=== PATIENT | female | born 1995 | race Two or more races ===

== ENCOUNTER 2017-06-12 23:00 | Emergency (ER) | payer MEDICAID ==
[~2017-06-12] VITALS: Ht 162.6 cm; Wt 80.3 kg
--- NOTE | 2017-06-12 23:05 | Emergency Room Report ---
History of Present Illness General Chief Complaint: To Be Triaged Present Illness HPI 21-year-old female with 2 weeks of dry cough, nausea, generalized body aches. Denies fever chills, shortness of breath or chest pain/ States that she used to have asthma hasnt had to use inhaler and a while, currently not using it got flu vaccine Allergies: Coded Allergies: No Known Allergies (Unverified , 06/12/17) Patient History Past Medical History: none Past Surgical History: none Pertinent Family History: none Social History: Denies: smoking, alcohol use, drug use Now: No Immunizations: UTD Reviewed Nursing Documentation: PMH: Agreed, PSxH: Agreed Review of Systems All Other Systems: negative except mentioned in HPI Physical Exam Sp02 EP Interpretation: reviewed, normal General Appearance: normal inspection, well appearing, no apparent distress, alert, GCS 15, non-toxic Head: normocephalic, atraumatic Eyes: bilateral eye PERRL, bilateral eye EOMI ENT: normal ENT inspection, hearing grossly normal, normal pharynx, no angioedema, normal voice, TMs + canals normal, uvula midline, moist mucus membranes Neck: normal inspection, full range of motion, supple, thyroid normal, no meningismus, no bony tend Respiratory: normal inspection, lungs clear, normal breath sounds, no rhonchi, no respiratory distress, no retraction, no accessory muscle use, no wheezing, speaking full sentences Cardiovascular #1: regular rate, rhythm, no edema, no JVD, normal capillary refill Gastrointestinal: normal inspection, normal bowel sounds, non tender, soft, no mass, no peritonitis, non-distended, no guarding, no hernia, no pulsatile mass Genitourinary: no CVA tenderness Musculoskeletal: normal inspection, back normal, normal range of motion, no calf tenderness, pelvis stable, Sharita's Sign negative Neurologic: normal inspection, alert, oriented x3, responsive, jackaroo III-XII nml as tested, motor strength/tone normal, cerebellar normal, normal gait, speech normal Psychiatric: normal inspection, judgement/insight normal, mood/affect normal, no suicidal/homicidal ideation, no delusions Skin: normal inspection, normal color, no rash Lymphatic: normal inspection, no adenopathy Medical Decision Making Diagnostic Impression: Primary Impression: Cough Additional Impression: Nausea ER Course Nausea from repeated dry coughing VSS, afebrile Lungs CTAB - no wheezing or PNA on exam Otherwise well appearing Was given oral zofran and albuterol, T#3 Likely URI, bronchitis DC ER course: Patient has remained stable during ED stay. Disposition: Patient is to be discharged to home. Prescriptions given are ventolin, cough syrup Patient is instructed to follow up with their primary care doctor within 5 days. Strict return precautions discussed with patient such as fever, chills, worsening/severe pain, nausea, vomiting, which may indicate severe illness. Patient verbalizes understanding and agrees with plan. Please note that this Emergency Department Report was dictated using [employer] technology software, occasionally this can lead to erroneous entry secondary to interpretation by the dictation equipment Status: improved Disposition: HOME, SELF-CARE REN AGUILLON M.D. Jun 12, 2017 23:05
[2017-06-12] MEDS ORDERED: Tylenol #3 tab (300mg/30mg) ORAL ONE (23:30)
[2017-06-12] MEDS ORDERED: Albuterol ud Inhalation HHN ONE (23:30)
[2017-06-12] MEDS ORDERED: ZOFRAN ODT4 MG ORAL (23:39)
[2017-06-12] MEDS ORDERED: VENTOLIN HFA18 GM INH (23:39)
[2017-06-12] MEDS ORDERED: Levalbuterol Inh UD 1.25mg/0.5ml HHN ONE (23:45)
[2017-06-13 00:17] VITALS: BP 137/78
== END 2017-06-13 00:24 | disposition home or self-care (01) ==
LOC: EMR 23:16
DX: R05 Cough (principal); R11.0 Nausea
CPT/HCPCS: 94640; 99282; J7644